=== PATIENT | male | born 1965 | race Caucasian/White ===

== ENCOUNTER 2017-04-17 12:21 | Inpatient (IN) | payer OTHER ==
[~2017-04-17] VITALS: Ht 172.7 cm; Wt 92.7 kg
[2017-04-17] VITALS (7 sets, daily range): BP systolic 95–116; BP diastolic 54–72; PULSE 90–106; RESP 18–20; TEMP 99.1–101; O2SAT 90–99
[2017-04-17] MEDS ORDERED: RANI150T PO (12:40)
[2017-04-17] MEDS ORDERED: IBRU1CAP PO (12:40)
[2017-04-17] MEDS ORDERED: AMOX875T PO (12:40)
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
--- NOTE | 2017-04-17 13:16 | RADRPT ---
EXAM DATE/TIME: 04/17/2017 13:07 [facility] COMPARISON: No previous studies available for comparison. INDICATIONS : Cough, chills, nausea. MEDICAL HISTORY : None. SURGICAL HISTORY : None. ENCOUNTER: Initial ACUITY: 2 days PAIN SCORE: 0/10 LOCATION: Bilateral chest FINDINGS: A single view of the chest demonstrates the lungs to be symmetrically aerated without evidence of mas s, infiltrate or effusion. The cardiomediastinal contours are unremarkable. Osseous structures are intact. CONCLUSION: No acute disease. Emery Corea MD on April 17, 2017 at 13:14 Board Certified Radiologist. This report was verified electronically.
[2017-04-17 13:22] LABS: HEMATOCRIT 42.9 % (39.0-51.0); MEAN CELL VOLUME 83.3 FL (80.0-100.0); MEAN CORPUSCULAR HEMOGLOBIN 27.7 PG (27.0-34.0); MEAN CORPUSCULAR HGB CONC 33.2 % (32.0-36.0); PLATELET COUNT 189 TH/MM3 (150-450); RED BLOOD COUNT 5.15 MIL/MM3 (4.50-5.90); RED CELL DISTRIBUTION WIDTH 13.5 % (11.6-17.2); WHITE BLOOD COUNT 36.4 TH/MM3 (4.0-11.0)
[2017-04-17 13:23] LABS: HEMO FLAGS AUTO DIFF
[2017-04-17 13:33] LABS: CHLORIDE 99 MEQ/L (98-107); POTASSIUM 3.6 MEQ/L (3.5-5.1); SODIUM (NA) 135 MEQ/L (136-145)
[2017-04-17 13:36] LABS: ANION GAP 13 MEQ/L (5-15); BICARBONATE 23.1 MEQ/L (21.0-32.0); BLOOD UREA NITROGEN 11 MG/DL (7-18)
[2017-04-17 13:37] LABS: INTERNATIONAL NORMALIZED RATIO 1.3 RATIO
[2017-04-17 13:39] LABS: GLOMERULAR FILTRATION RATE 63 ML/MIN (>89)
[2017-04-17] MEDS ORDERED: SODIUM CHLOR 0.9% 1000 ML INJ 1,000 ML IV ONE ×2 (14:00→15:00)
[2017-04-17 14:03] LABS: BANDS 1 % (0-6); POLYS (SEG NEUTROPHILS) 76 % (16-70); SCAN/DIFF FINAL DIFF MANUAL; WBC DIFF SAMPLE 100
[2017-04-17] MEDS ORDERED: PIPERACIL-TAZO 3.375 GM PREMIX 50 ML IV ONE (15:00)
[2017-04-17] MEDS ORDERED: VANCOMYCIN INJ 1,250 MG in SODIUM CHLOR 0.9% 250 ML INJ 250 ML IV ONE (15:00)
[2017-04-17 15:16] LABS: LACTIC ACID GHOST NOT REPORTABLE
[2017-04-17] MEDS ORDERED: SODIUM CHLORIDE 0.9% FLUSH 10 ML FLUSH IV FLUSH PRN (15:30)
[2017-04-17] MEDS ORDERED: NALOXONE HCL 0.4 MG/ML AMP IV PRN (15:30)
[2017-04-17] MEDS ORDERED: ONDANSETRON HCL 4 MG/2 ML VIAL IVP PRN (15:30)
[2017-04-17] MEDS ORDERED: LACTULOSE SYRUP 20 GM/30 ML CUP PO PRN (15:30)
[2017-04-17] MEDS ORDERED: MAGNESIUM HYDROXIDE SUSP 30 ML CUP PO PRN (15:30)
[2017-04-17] MEDS ORDERED: ACETAMINOPHEN/HYDROcodone 325 MG/5 MG TAB PO PRN (15:30)
[2017-04-17 15:57] LABS: BLOOD, URINE TRACE (NEG); GLUCOSE,URINE NEG (NEG); KETONE, URINE NEG (NEG); NITRITE,URINE NEG (NEG); PH, URINE 6.5 (5.0-8.5)
[2017-04-17 16:03] LABS: METHOD OF COLLECTION CLEAN CATCH; URINE COLOR YELLOW (YELLW/STRAW)
[2017-04-17 16:04] LABS: COMMENT (UR) CULT NOT INDICATED; CULTURE IF INDICATED CULT NOT INDICATED; RBC, URINE 0-3 /hpf (0-3); SQUAMOUS EPITHELIAL CELL URINE 0-5 /hpf (0-5)
[2017-04-17] MEDS ORDERED: LOPERAMIDE HCL SOLN 2 MG/10 ML UDC PO PRN (17:30)
[2017-04-17] MEDS ORDERED: Vancomycin Consult Pharmacy 1 EA OTHER SCH (17:30)
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
[2017-04-17] MEDS ORDERED: guaiFENesin SOLUTION 200 MG/10 ML CUP PO PRN (17:45)
[2017-04-17] MEDS: ACETAMINOPHEN/HYDROcodone 325 MG/7.5 MG TAB PO PRN ×2 (18:11→22:05)
[2017-04-17] MEDS: ACETAMINOPHEN 325 MG TAB PO PRN (18:11)
[2017-04-17] MEDS: LACTOBACILLUS ACIDOPHILUS TAB PO SCH (18:12)
[2017-04-17] MEDS: SODIUM CHLOR 0.9% 1000 ML INJ 1,000 ML IV SCH (18:12)
[2017-04-17] MEDS: SODIUM CHLORIDE 0.9% FLUSH 10 ML FLUSH IV FLUSH SCH (21:00)
[2017-04-17] MEDS ORDERED: DOCUSATE SODIUM 50 MG/SENNA 8.6 MG TAB PO SCH (21:00)
[2017-04-18] VITALS (8 sets, daily range): BP systolic 101–121; BP diastolic 64–78; PULSE 68–108; RESP 16–20; TEMP 98.6–101.6; O2SAT 92–95
[2017-04-18] MEDS: PIPERACIL-TAZO 3.375 GM PREMIX 50 ML IV SCH ×3 (00:53→16:33)
[2017-04-18] MEDS: SODIUM CHLOR 0.9% 1000 ML INJ 1,000 ML IV SCH ×2 (00:58→13:19)
[2017-04-18] MEDS: ACETAMINOPHEN/HYDROcodone 325 MG/7.5 MG TAB PO PRN ×4 (04:33→21:49)
[2017-04-18] MEDS: ACETAMINOPHEN 325 MG TAB PO PRN ×2 (04:34→21:48)
[2017-04-18] MEDS: VANCOMYCIN INJ 1,000 MG in SODIUM CHLOR 0.9% 250 ML INJ 250 ML IV SCH ×2 (05:50→16:33)
[2017-04-18 06:44] LABS: AUTOMATED NEUTROPHIL # 21.4 TH/MM3 (1.8-7.7); BASOPHIL # 0.2 TH/MM3 (0-0.2); BASOPHIL % 0.9 % (0.0-2.0); EOSINOPHIL % 0.1 % (0.0-4.0); HEMATOCRIT 37.9 % (39.0-51.0); LYMPH % 7.4 % (9.0-44.0); LYMPHOCYTE # 1.8 TH/MM3 (1.0-4.8); MEAN CELL VOLUME 84.1 FL (80.0-100.0); MEAN CORPUSCULAR HEMOGLOBIN 27.7 PG (27.0-34.0); MONO % 3.9 % (0.0-8.0); NEUT % 87.7 % (16.0-70.0); PLATELET COUNT 142 TH/MM3 (150-450); RED BLOOD COUNT 4.51 MIL/MM3 (4.50-5.90); RED CELL DISTRIBUTION WIDTH 13.6 % (11.6-17.2); WHITE BLOOD COUNT 24.4 TH/MM3 (4.0-11.0)
[2017-04-18 07:00] LABS: CHLORIDE 101 MEQ/L (98-107); SODIUM (NA) 135 MEQ/L (136-145)
[2017-04-18 07:01] LABS: HEMO FLAGS AUTO DIFF
[2017-04-18 07:26] LABS: SCAN/DIFF AUTO DIFF CONFIRMED
[2017-04-18 07:45] LABS: ALKALINE PHOSPHATASE 78 U/L (45-117); ALT (GPT) 30 U/L (12-78); ANION GAP 10 MEQ/L (5-15); AST (GOT) 14 U/L (15-37); BICARBONATE 24.2 MEQ/L (21.0-32.0); BLOOD UREA NITROGEN 9 MG/DL (7-18); GLOMERULAR FILTRATION RATE 78 ML/MIN (>89); TOTAL BILIRUBIN ADULT 3.5 MG/DL (0.2-1.0)
[2017-04-18] MEDS: IBUPROFEN 400 MG TAB PO PRN ×2 (08:11→16:32)
[2017-04-18] MEDS: SODIUM CHLORIDE 0.9% FLUSH 10 ML FLUSH IV FLUSH SCH ×2 (08:11→21:49)
[2017-04-18] MEDS: FAMOTIDINE 20 MG TAB PO SCH (08:11)
[2017-04-18] MEDS: LACTOBACILLUS ACIDOPHILUS TAB PO SCH ×3 (08:11→16:32)
[2017-04-18] MEDS ORDERED: POTASSIUM CHLORIDE 10 MEQ CONTROLLED RELEASE TAB PO ONE (08:45)
[2017-04-18] MEDS ORDERED: ALPRAZolam 1 MG TAB PO ONE (10:15)
[2017-04-18] MEDS ORDERED: TEMAZEPAM 15 MG CAP PO PRN (10:15)
[2017-04-18 10:20] LABS: C. DIFF EPI 027 PRESUMPTIVE NEGATIVE (NEGATIVE)
[2017-04-18] MEDS: IBRUTINIB 140 MG PO SCH (10:26)
--- NOTE | 2017-04-18 10:40 | HHI.PR ---
Subjective Remarks Complain of insomnia overnight. Patient is feeling better. He continues to have fevers. White blood cell count has decreased from 36.4-24.4. Lactic acid level has also improved. Low potassium present this morning. CLL continues to place him at increased risk. Further treatments will be needed. Patient remains in sepsis this morning and will likely take longer to resolve for sepsis due to his immunocompromise. He no longer has severe sepsis at this point. Objective Vital Signs Date Time Temp Pulse Resp B/P (MAP) Pulse Ox O2 Delivery O2 Flow Rate FiO2 04/18/17 08:00 101.6 108 20 118/73 (88) 93 04/18/17 04:00 100.4 102 20 118/78 (91) 92 04/18/17 00:00 99.7 94 16 101/64 (76) 92 04/17/17 20:00 99.6 95 18 114/72 (86) 94 04/17/17 20:00 91 04/17/17 17:45 101.0 94 18 116/69 (85) 94 04/17/17 17:39 04/17/17 16:53 96 18 99/65 (76) 99 04/17/17 16:00 94 20 104/64 (77) 93 04/17/17 14:35 92 20 95/54 (68) 94 04/17/17 13:16 90 20 104/60 (75) 90 04/17/17 12:24 99.1 106 20 107/63 (78) 94 I/O 04/17/17 04/17/17 04/17/17 04/18/17 04/18/17 04/18/17 07:00 15:00 23:00 07:00 15:00 23:00 Intake Total 1550 ml Output Total 400 ml 400 ml Balance 1150 ml -400 ml Intake IV Total 1550 ml Output Urine Total 400 ml 400 ml # Bowel Movements 1 Result Diagram: 04/18/1762404/18/17624 Objective Remarks GENERAL: NAD, A&Ox3 HEAD: Normocephalic. NECK: Supple, trachea midline. No lymphadenopathy. EYES: No scleral icterus. No injection or drainage. CARDIOVASCULAR: Tachycardia, without murmurs, gallops, or rubs. RESPIRATORY: Breath sounds equal bilaterally. No accessory muscle use. GASTROINTESTINAL: Abdomen soft, non-tender, nondistended. MUSCULOSKELETAL: No cyanosis, or edema. SKIN: Warm and dry. NEURO: No focal neurological deficitis. A/P Problem List: (1) Severe sepsis ICD Code: A41.9 - Sepsis, unspecified organism; R65.20 - Severe sepsis without septic shock (2) CLL (chronic lymphocytic leukemia) ICD Code: C91.10 - Chronic lymphocytic leukemia of B-cell type not having achieved remission (3) Gastroesophageal reflux disease ICD Code: K21.9 - Gastro-esophageal reflux disease without esophagitis (4) Sepsis ICD Code: A41.9 - Sepsis, unspecified organism Status: Acute Assessment and Plan Assessment and plan 52-year-old male admitted secondary to severe sepsis. Fevers still remained. Patient is still septic this morning. Further treatments with antibiotics and close monitoring needed. Restoril started for insomnia. Severe sepsis Resolved, now sepsis remains Sepsis Suspect primary viral etiology Suspected secondary bacterial infection Continue Zosyn and vancomycin Follow CBC Continue IV hydration Monitor blood pressures Monitor for improvement in white blood cell count Diarrhea Gastroenteritis Hyperemesis Screen for C. difficile pending As needed Imodium as long C. difficile is negative IV hydration Zofran Myalgias Arthralgias Slight improvement PRN pain treatments Productive cough Zosyn and vancomycin As needed Robitussin Oxygen supplementation as needed CLL Immunocompromise state Baseline white blood cell count is approximately 12.0 If conversion to ALL becomes suspicious oncology will be consulted Gastroesophageal reflux disease Continue Protonix DVT prophylaxis SCDs Problem Qualifiers (1) Sepsis: Qualified Codes: A41.9 - Sepsis, unspecified organism Harry Miranda MD Apr 18, 2017 10:40
[2017-04-18] MEDS ORDERED: metroNIDAZOLE 500 MG TAB PO ONE (11:45)
--- NOTE | 2017-04-18 13:41 | EKG ---
Date Performed: 04/17/2017 Time Performed: 13:14:15 PTAGE: 52 years EKG: SINUS TACHYCARDIA NONSPECIFIC T-WAVE ABNORMALITY ABNORMAL RHYTHM ECG NO PREVIOUS TRACING DOCTOR: Anthony Velazco Interpretating Date/Time 04/18/2017 13:38:27
[2017-04-18] MEDS: metroNIDAZOLE 500 MG TAB PO SCH (21:49)
[2017-04-19] VITALS: BP 109/69; PULSE 98; RESP 20; TEMP 98.7; O2SAT 92
[2017-04-19] MEDS: PIPERACIL-TAZO 3.375 GM PREMIX 50 ML IV SCH ×2 (01:48→09:19)
[2017-04-19] MEDS: SODIUM CHLOR 0.9% 1000 ML INJ 1,000 ML IV SCH (01:52)
[2017-04-19 04:00] VITALS: BP 94/70; PULSE 94; RESP 20; TEMP 97.2; O2SAT 94
[2017-04-19] MEDS: metroNIDAZOLE 500 MG TAB PO SCH (05:24)
[2017-04-19] MEDS: VANCOMYCIN INJ 1,000 MG in SODIUM CHLOR 0.9% 250 ML INJ 250 ML IV SCH (05:25)
[2017-04-19] MEDS ORDERED: PHARMACY ORDERED LAB ONE (05:45)
[2017-04-19 06:01] LABS: BASOPHIL % 0.1 % (0.0-2.0); EOSINOPHIL % 0.1 % (0.0-4.0); HEMATOCRIT 38.4 % (39.0-51.0); LYMPH % 4.6 % (9.0-44.0); LYMPHOCYTE # 1.5 TH/MM3 (1.0-4.8); MEAN CELL VOLUME 82.9 FL (80.0-100.0); MEAN CORPUSCULAR HEMOGLOBIN 27.6 PG (27.0-34.0); MEAN CORPUSCULAR HGB CONC 33.3 % (32.0-36.0); MONO % 5.2 % (0.0-8.0); PLATELET COUNT 163 TH/MM3 (150-450); RED BLOOD COUNT 4.63 MIL/MM3 (4.50-5.90); RED CELL DISTRIBUTION WIDTH 13.7 % (11.6-17.2); WHITE BLOOD COUNT 33.2 TH/MM3 (4.0-11.0)
[2017-04-19 06:03] LABS: HEMO FLAGS AUTO DIFF
[2017-04-19 06:11] LABS: CHLORIDE 103 MEQ/L (98-107); POTASSIUM 3.3 MEQ/L (3.5-5.1); SODIUM (NA) 136 MEQ/L (136-145)
[2017-04-19 06:16] LABS: ANION GAP 11 MEQ/L (5-15); BICARBONATE 21.8 MEQ/L (21.0-32.0); BLOOD UREA NITROGEN 13 MG/DL (7-18)
[2017-04-19 06:19] LABS: ALT (GPT) 21 U/L (12-78); AST (GOT) 11 U/L (15-37); BANDS 23 % (0-6); GLOMERULAR FILTRATION RATE 58 ML/MIN (>89); NEUTROPHIL # MANUAL DIFF 30.5 TH/MM3 (1.8-7.7); PLATELET ESTIMATE SMEAR NORMAL (NORMAL); PLATELET MORPHOLOGY NORMAL (NORMAL); POLYS (SEG NEUTROPHILS) 69 % (16-70); WBC DIFF SAMPLE 100
[2017-04-19 06:20] LABS: SCAN/DIFF FINAL DIFF MANUAL; TOTAL BILIRUBIN ADULT 3.7 MG/DL (0.2-1.0)
[2017-04-19 06:22] LABS: ALKALINE PHOSPHATASE 88 U/L (45-117)
--- NOTE | 2017-04-19 07:49 | RADRPT ---
EXAM DATE/TIME: 04/19/2017 07:32 [facility] COMPARISON: CHEST SINGLE AP, April 17, 2017, 13:07. INDICATIONS : Short of breath. MEDICAL HISTORY : None. SURGICAL HISTORY : None. ENCOUNTER: Subsequent ACUITY: 3 days PAIN SCORE: 0/10 LOCATION: Bilateral chest FINDINGS: A single AP erect portable view of the chest demonstrates the lungs to be symmetrically aerated witho ut evidence of mass, infiltrate or effusion. The study is Midinspiratory with crowding of the lung va sculature. The cardiomediastinal contours are unremarkable. Osseous structures are intact. CONCLUSION: Midinspiratory exam with no acute cardiopulmonary disease. Leodan Hayes MD on April 19, 2017 at 7:47 Board Certified Radiologist. This report was verified electronically.
[2017-04-19] MEDS: SODIUM CHLORIDE 0.9% FLUSH 10 ML FLUSH IV FLUSH SCH (08:01)
[2017-04-19 08:09] VITALS: BP 118/74; PULSE 95; O2SAT 95
[2017-04-19] MEDS ORDERED: NITROGLYCERIN 0.4 MG SL 25 TABS/BTL SL PRN (08:15)
[2017-04-19] MEDS: LACTOBACILLUS ACIDOPHILUS TAB PO SCH (09:04)
[2017-04-19] MEDS: FAMOTIDINE 20 MG TAB PO SCH (09:04)
[2017-04-19] MEDS: IBRUTINIB 140 MG PO SCH (09:05)
[2017-04-19] MEDS ORDERED: METR-1 PO (09:36)
[2017-04-19] MEDS ORDERED: LACTTAB8 PO (09:36)
[2017-04-19] MEDS ORDERED: LEVA750T9 PO (09:36)
--- NOTE | 2017-04-19 10:08 | HHI.PR ---
Subjective Remarks Reports of chest pain this morning. ACS protocol and active. Aspirin provided. Chest pain has resolved by the time I see the patient. The patient feels that his chest pain is related to his cough combined with aggravation from episodes occurring overnight. He says he's perturbed because his IV pump continuously beeped and nobody helped stop beeping. He requested an IV change and this was not accommodated. He also had diarrhea and soiled the bed and reports that took an hour to remedy. Chest pain is improved now. However, patient is intending to leave AMA. I advised that he stay as he still has active fever and meets sepsis criteria and presence of immunocompromise secondary to his CLL. He will continue to be encouraged to stay. Objective Vital Signs Date Time Temp Pulse Resp B/P (MAP) Pulse Ox O2 Delivery O2 Flow Rate FiO2 04/19/17 08:09 95 118/74 (89) 95 04/19/17 04:00 97.2 94 20 94/70 (78) 94 04/19/17 00:00 98.7 98 20 109/69 (82) 92 04/18/17 21:49 107 04/18/17 20:00 101.3 106 20 107/69 (82) 92 04/18/17 17:39 18 04/18/17 17:39 18 04/18/17 16:00 100.7 106 18 121/73 (89) 94 04/18/17 12:00 98.6 68 20 107/67 (80) 95 I/O 04/18/17 04/18/17 04/18/17 04/19/17 04/19/17 04/19/17 07:00 15:00 23:00 07:00 15:00 23:00 Intake Total 1550 ml 1775 ml 550 ml 2110 ml Output Total 400 ml 400 ml 750 ml Balance 1150 ml 1375 ml 550 ml 1360 ml Intake Oral 725 ml 250 ml 480 ml IV Total 1550 ml 1050 ml 300 ml 1630 ml Output Urine Total 400 ml 400 ml 750 ml Bladder Scan Volume Amount 113 ml # Voids 4 3 # Bowel Movements 1 2 0 Result Diagram: 04/19/1744604/19/17446 Objective Remarks GENERAL: NAD, A&Ox3 HEAD: Normocephalic. NECK: Supple, trachea midline. No lymphadenopathy. EYES: No scleral icterus. No injection or drainage. CARDIOVASCULAR: Tachycardia, without murmurs, gallops, or rubs. RESPIRATORY: Breath sounds equal bilaterally. No accessory muscle use. GASTROINTESTINAL: Abdomen soft, non-tender, nondistended. MUSCULOSKELETAL: No cyanosis, or edema. SKIN: Warm and dry. NEURO: No focal neurological deficitis. A/P Problem List: (1) Severe sepsis ICD Code: A41.9 - Sepsis, unspecified organism; R65.20 - Severe sepsis without septic shock (2) CLL (chronic lymphocytic leukemia) ICD Code: C91.10 - Chronic lymphocytic leukemia of B-cell type not having achieved remission (3) Gastroesophageal reflux disease ICD Code: K21.9 - Gastro-esophageal reflux disease without esophagitis (4) Sepsis ICD Code: A41.9 - Sepsis, unspecified organism Status: Acute Assessment and Plan Assessment and plan 52-year-old male admitted secondary to severe sepsis. Fevers still remained. Patient is still meeting sepsis criteria today. White blood cell count increased to 33. Chest pain reported overnight. Follow cardiac enzymes, aspirin, oxygen as needed, monitor for symptoms. As needed nitroglycerin. Bilirubin levels elevated but this is chronic for him. Patient is at risk for AMA discharge today. He is encouraged to stay due to his clinical state. Severe sepsis Resolved, now sepsis remains Sepsis Suspect primary viral etiology Suspected secondary bacterial infection Continue Zosyn and vancomycin Follow CBC Continue IV hydration Monitor blood pressures Monitor for improvement in white blood cell count Diarrhea Gastroenteritis Hyperemesis Screen for C. difficile pending As needed Imodium as long C. difficile is negative IV hydration Zofran Myalgias Arthralgias Slight improvement PRN pain treatments Chronic hyperbilirubinemia Monitor Productive cough Zosyn and vancomycin As needed Robitussin Oxygen supplementation as needed CLL Immunocompromise state Baseline white blood cell count is approximately 12.0 If conversion to ALL becomes suspicious oncology will be consulted Gastroesophageal reflux disease Continue Protonix DVT prophylaxis SCDs Problem Qualifiers (1) Sepsis: Qualified Codes: A41.9 - Sepsis, unspecified organism Harry Miranda MD Apr 19, 2017 10:08
[2017-04-19] MEDS ORDERED: ASPIRIN 325 MG TAB PO ONE (10:15)
[2017-04-19 11:09] LABS: BLOOD, URINE SMALL (NEG); GLUCOSE,URINE 100 mg/dL (NEG); KETONE, URINE NEG (NEG); NITRITE,URINE NEG (NEG); PH, URINE 5.5 (5.0-8.5)
[2017-04-19 11:24] LABS: METHOD OF COLLECTION CLEAN CATCH; URINE COLOR AMBER (YELLW/STRAW)
[2017-04-19 11:34] LABS: SQUAMOUS EPITHELIAL CELL URINE 0-5 /hpf (0-5)
[2017-04-19 11:38] LABS: COMMENT (UR) CULT NOT INDICATED; CULTURE IF INDICATED CULT NOT INDICATED
--- NOTE | 2017-04-19 12:03 | PD.AMA ---
Against Medical Advice Note Diagnosis: (1) C. difficile colitis (2) CLL (chronic lymphocytic leukemia) (3) Severe sepsis Discharge Disposition: Against Medical Advice Pt Condition on Discharge: Guarded Recommended Treatment Course Patient is recommended to stay until sepsis resolved. She elected to leave. Antibiotics were provided continue as an outpatient due to the risks of his CLL with immunocompromise and active C. difficile and possible other bacterial infection. He is provided with Levaquin and Flagyl and probiotics. He is encouraged to return to the hospital should fevers persist or for any worsening. AMA Statement Patient Corwin Proctor has decided to leave the hospital against medical advice. This patient has the capacity to refuse care and understands the risks of leaving, including permanent disability and/or , and has had an opportunity to ask questions about his condition. The patient has been informed that he may return for care at any time, and follow up has been arranged/ advised. Harry Miranda MD Apr 19, 2017 12:03
--- NOTE | 2017-04-19 12:43 | EKG ---
Date Performed: 04/19/2017 Time Performed: 07:46:26 PTAGE: 52 years EKG: SINUS TACHYCARDIA NONSPECIFIC T-WAVE ABNORMALITY ABNORMAL RHYTHM ECG PREVIOUS TRACING : 04/17/2017 13.14 DOCTOR: King Elizabeth Interpretating Date/Time 04/19/2017 12:41:52
[2017-04-20] MEDS ORDERED: ASPIRIN 325 MG TAB PO SCH (09:00)
== END 2017-04-19 11:24 | disposition left against medical advice (07) | DRG 872 ==
LOC: PHED 12:21 → PHEDA 15:13 → PH3A 17:32
PROVIDERS: ADMIT Hospitalist; ATTEND Hospitalist
DX: A41.9 Sepsis, unspecified organism (principal); C91.10 Chronic lymphocytic leukemia of B-cell type not having achieved remission; A04.7 Enterocolitis due to Clostridium difficile; R17 Unspecified jaundice; R65.20 Severe sepsis without septic shock; G47.00 Insomnia, unspecified; J40 Bronchitis, not specified as acute or chronic; K21.9 Gastro-esophageal reflux disease without esophagitis; R00.0 Tachycardia, unspecified
CPT/HCPCS: 71010; 80048; 80053; 80202; 81001; 82550; 83605; 84484; 85007; 85025; 85027; 85610; 85730; 87040; 87493; 87804; 93005; 96360; J2405; J2543; J3370; J7030; J7050

== ENCOUNTER 2017-04-21 00:54 | Inpatient (IN) | payer OTHER ==
[~2017-04-21] VITALS: Ht 172.7 cm; Wt 98.8 kg
[2017-04-21] VITALS (12 sets, daily range): BP systolic 117–127; BP diastolic 70–84; PULSE 87–98; RESP 14–24; TEMP 97.7–99.5; O2SAT 91–97
[~2017-04-21 00:54] MED LIST: IBRU1CAP PO; LACTTAB8 PO; LEVA750T9 PO; METR-1 PO; RANI150T PO
[2017-04-21] MEDS ORDERED: IOHEXOL 350 MG/ML 10 ML VIAL (for RAD DIAG) IVCONTRAST ONE (00:55)
[2017-04-21] MEDS ORDERED: SODIUM CHLOR 0.9% 1000 ML INJ 1,000 ML IV ONE ×2 (01:30→02:45)
[2017-04-21] MEDS ORDERED: SODIUM CHLORIDE 0.9% FLUSH 10 ML FLUSH IV FLUSH PRN ×2 (01:30→03:15)
[2017-04-21] MEDS ORDERED: PIPERACIL-TAZO 4.5 GM PREMIX 100 ML IV ONE (01:30)
[2017-04-21] MEDS ORDERED: VANCOMYCIN INJ 1,000 MG in SODIUM CHLOR 0.9% 250 ML INJ 250 ML IV ONE (01:30)
[2017-04-21 01:50] LABS: BASOPHIL # 0.1 TH/MM3 (0-0.2); BASOPHIL % 0.3 % (0.0-2.0); EOSINOPHIL # 0.2 TH/MM3 (0-0.4); EOSINOPHIL % 0.7 % (0.0-4.0); HEMATOCRIT 36.5 % (39.0-51.0); LYMPH % 7.9 % (9.0-44.0); LYMPHOCYTE # 2.1 TH/MM3 (1.0-4.8); MEAN CELL VOLUME 82.8 FL (80.0-100.0); MEAN CORPUSCULAR HEMOGLOBIN 27.2 PG (27.0-34.0); MEAN CORPUSCULAR HGB CONC 32.8 % (32.0-36.0); MONO % 4.7 % (0.0-8.0); NEUT % 86.4 % (16.0-70.0); PLATELET COUNT 195 TH/MM3 (150-450); RED BLOOD COUNT 4.41 MIL/MM3 (4.50-5.90); RED CELL DISTRIBUTION WIDTH 13.8 % (11.6-17.2); WHITE BLOOD COUNT 26.7 TH/MM3 (4.0-11.0)
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
[2017-04-21 02:01] LABS: HEMO FLAGS DIFF FINAL
[2017-04-21 02:04] LABS: CHLORIDE 99 MEQ/L (98-107); SODIUM (NA) 132 MEQ/L (136-145)
[2017-04-21 02:08] LABS: ANION GAP 11 MEQ/L (5-15); APTT (PATIENT) 29.1 SEC (24.3-30.1); BICARBONATE 21.7 MEQ/L (21.0-32.0); INTERNATIONAL NORMALIZED RATIO 1.1 RATIO; MAGNESIUM 1.8 MG/DL (1.5-2.5)
[2017-04-21] MEDS ORDERED: HYDROmorphone HCL PF 1 MG/ML VIAL IV PUSH ONE (02:15)
[2017-04-21] MEDS ORDERED: ONDANSETRON HCL 4 MG/2 ML VIAL IV PUSH ONE (02:15)
--- NOTE | 2017-04-21 02:29 | RADRPT ---
EXAM DATE/TIME: 04/21/2017 01:38 [facility] COMPARISON: CHEST SINGLE AP, April 19, 2017, 7:32. INDICATIONS : Fever. MEDICAL HISTORY : None. SURGICAL HISTORY : None. ENCOUNTER: Sequela ACUITY: 1 week PAIN SCORE: 8/10 LOCATION: Bilateral chest FINDINGS: Lung volumes are small and with vascular crowding. There is mild atelectasis/infiltrate at the bases and in the left perihilar region. No large effusion seen. No pneumothorax. Heart size stable, upper limits of normal. CONCLUSION: Bibasilar and left perihilar consolidation. Emery Houston MD on April 21, 2017 at 2:26 Board Certified Radiologist. This report was verified electronically.
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
[2017-04-21 02:40] LABS: ALKALINE PHOSPHATASE 106 U/L (45-117); ALT (GPT) 16 U/L (12-78); AST (GOT) 14 U/L (15-37); BLOOD UREA NITROGEN 37 MG/DL (7-18); CREATINE KINASE 50 U/L (39-308); GLOMERULAR FILTRATION RATE 20 ML/MIN (>89); TOTAL BILIRUBIN ADULT 0.9 MG/DL (0.2-1.0)
[2017-04-21] MEDS ORDERED: metroNIDAZOLE 500 MG TAB PO ONE (02:45)
[2017-04-21] MEDS ORDERED: POTASSIUM CHLORIDE 20 MEQ CONTROLLED RELEASE TAB PO ONE (02:45)
[2017-04-21] MEDS ORDERED: SODIUM CHLORIDE 0.9% FLUSH 10 ML FLUSH IVF PRN (03:00)
[2017-04-21 03:11] LABS: BLOOD, URINE SMALL (NEG); GLUCOSE,URINE NEG (NEG); KETONE, URINE TRACE mg/dL (NEG); NITRITE,URINE NEG (NEG); PH, URINE 5.5 (5.0-8.5)
[2017-04-21] MEDS ORDERED: SODIUM CHLOR 0.9% 1000 ML INJ 1,000 ML IV SCH (03:12)
[2017-04-21] MEDS ORDERED: BISACODYL 10 MG SUPP RECTAL PRN (03:15)
[2017-04-21] MEDS ORDERED: ACETAMINOPHEN/HYDROcodone 325 MG/5 MG TAB PO PRN (03:15)
[2017-04-21] MEDS ORDERED: SENNOSIDES 8.6 MG TAB PO PRN (03:15)
[2017-04-21] MEDS ORDERED: LACTULOSE SYRUP 20 GM/30 ML CUP PO PRN (03:15)
[2017-04-21] MEDS ORDERED: ACETAMINOPHEN 325 MG TAB PO PRN (03:15)
[2017-04-21] MEDS ORDERED: Vancomycin Consult Pharmacy 1 EA OTHER SCH (03:15)
[2017-04-21] MEDS ORDERED: MAGNESIUM HYDROXIDE SUSP 30 ML CUP PO PRN (03:15)
[2017-04-21 03:17] LABS: URINE COLOR YELLOW (YELLW/STRAW)
[2017-04-21 03:19] LABS: COMMENT (UR) CULT NOT INDICATED; CULTURE IF INDICATED CULT NOT INDICATED; WBC, URINE 0-2 /hpf (0-5)
[2017-04-21] MEDS ORDERED: VANCOMYCIN 1,000 MG/NS 250 ML IV ONE ×2 (04:00)
[2017-04-21] MEDS: MORPHINE SULFATE 4 MG/ML INJ IV PRN ×6 (05:21→22:03)
[2017-04-21] MEDS ORDERED: SODIUM CHLORIDE 0.9% FLUSH 10 ML FLUSH IV FLUSH SCH (09:00)
[2017-04-21] MEDS: SODIUM CHLORIDE 0.9% FLUSH 10 ML FLUSH IV FLUSH SCH ×2 (09:00→21:00)
[2017-04-21] MEDS: DOCUSATE SODIUM 50 MG/SENNA 8.6 MG TAB PO SCH ×2 (09:05→21:00)
[2017-04-21] MEDS: ONDANSETRON HCL 4 MG/2 ML VIAL IVP PRN ×3 (09:06→22:02)
[2017-04-21 11:10] LABS: HEMATOCRIT 34.3 % (39.0-51.0); MEAN CELL VOLUME 82.9 FL (80.0-100.0); MEAN CORPUSCULAR HEMOGLOBIN 27.7 PG (27.0-34.0); MEAN CORPUSCULAR HGB CONC 33.4 % (32.0-36.0); PLATELET COUNT 185 TH/MM3 (150-450); RED BLOOD COUNT 4.13 MIL/MM3 (4.50-5.90); RED CELL DISTRIBUTION WIDTH 14.3 % (11.6-17.2); REVIEW FLAG FINAL; WHITE BLOOD COUNT 23.9 TH/MM3 (4.0-11.0)
[2017-04-21 11:19] LABS: POTASSIUM 3.3 MEQ/L (3.5-5.1)
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
[2017-04-21] MEDS: metroNIDAZOLE 500 MG TAB PO SCH ×2 (12:19→18:40)
--- NOTE | 2017-04-21 13:38 | EKG ---
Date Performed: 04/21/2017 Time Performed: 01:47:18 PTAGE: 52 years EKG: Sinus rhythm NONSPECIFIC T-WAVE ABNORMALITY Compared to prior tracing no significant change BORDERLINE ECG PREVIOUS TRACING : 04/19/2017 07.46 DOCTOR: Saurabh Fraser Interpretating Date/Time 04/21/2017 13:38:00
[2017-04-21] MEDS: NS + KCL 40 MEQ INJ 1,000 ML IV SCH (13:58)
[2017-04-21] MEDS: CEFEPIME INJ 1,000 MG in SODIUM CHLORIDE 0.9% INJ 100 ML IV SCH (13:59)
[2017-04-21] MEDS ORDERED: IBRUTINIB 140 MG PO ONE (16:45)
[2017-04-21] MEDS ORDERED: PATIENT OWN MEDICATION PO ONE (16:45)
[2017-04-22] VITALS (8 sets, daily range): BP systolic 121–140; BP diastolic 73–88; PULSE 76–86; RESP 12–20; TEMP 96.3–99.2; O2SAT 92–97
[2017-04-22] MEDS: metroNIDAZOLE 500 MG TAB PO SCH ×3 (03:00→18:23)
[2017-04-22] MEDS ORDERED: ALUMINUM/MAGNESIUM/SIMETH 30 ML CUP PO ONE (03:00)
[2017-04-22] MEDS: SODIUM CHLORIDE 0.9% FLUSH 10 ML FLUSH IV FLUSH SCH ×2 (08:46→20:55)
[2017-04-22] MEDS: FAMOTIDINE 20 MG TAB PO SCH (08:51)
[2017-04-22] MEDS: DOCUSATE SODIUM 50 MG/SENNA 8.6 MG TAB PO SCH ×2 (08:51→20:54)
[2017-04-22] MEDS ORDERED: IBRUTINIB 140 MG PO SCH (09:00)
[2017-04-22] MEDS: MORPHINE SULFATE 4 MG/ML INJ IV PRN ×4 (10:50→21:39)
[2017-04-22 11:02] LABS: CHLORIDE 105 MEQ/L (98-107); POTASSIUM 3.2 MEQ/L (3.5-5.1); SODIUM (NA) 136 MEQ/L (136-145)
[2017-04-22 11:05] LABS: ANION GAP 11 MEQ/L (5-15); AUTOMATED NEUTROPHIL # 13.1 TH/MM3 (1.8-7.7); BASOPHIL % 0.2 % (0.0-2.0); BICARBONATE 19.7 MEQ/L (21.0-32.0); BLOOD UREA NITROGEN 36 MG/DL (7-18); EOSINOPHIL # 0.2 TH/MM3 (0-0.4); HEMATOCRIT 33.5 % (39.0-51.0); LYMPH % 9.3 % (9.0-44.0); LYMPHOCYTE # 1.5 TH/MM3 (1.0-4.8); MEAN CELL VOLUME 82.7 FL (80.0-100.0); MEAN CORPUSCULAR HEMOGLOBIN 26.4 PG (27.0-34.0); MEAN CORPUSCULAR HGB CONC 31.9 % (32.0-36.0); MONO % 6.2 % (0.0-8.0); NEUT % 83.3 % (16.0-70.0); PLATELET COUNT 190 TH/MM3 (150-450); RED BLOOD COUNT 4.05 MIL/MM3 (4.50-5.90); RED CELL DISTRIBUTION WIDTH 14.1 % (11.6-17.2); WHITE BLOOD COUNT 15.8 TH/MM3 (4.0-11.0)
[2017-04-22 11:08] LABS: ALT (GPT) 15 U/L (12-78); AST (GOT) 19 U/L (15-37); GLOMERULAR FILTRATION RATE 28 ML/MIN (>89)
[2017-04-22 11:10] LABS: TOTAL BILIRUBIN ADULT 0.6 MG/DL (0.2-1.0)
[2017-04-22 11:11] LABS: ALKALINE PHOSPHATASE 97 U/L (45-117)
[2017-04-22 11:19] LABS: HEMO FLAGS DIFF FINAL
--- NOTE | 2017-04-22 12:02 | HHI.PR ---
Subjective Remarks Patient still complains of diarrhea and abdominal distention. Some improvement in white blood cell count and a decrease in percent neutrophils. He is on an immunosuppressant for his CLL. Increased rate feeling is possible if we hold immunosuppressant. This was discussed with patient. No new complaints. No fevers. He feels weak. Objective Vital Signs Date Time Temp Pulse Resp B/P (MAP) Pulse Ox O2 Delivery O2 Flow Rate FiO2 04/22/17 09:08 96.3 82 20 133/77 (95) 95 04/22/17 05:37 98.5 77 16 125/77 (93) 96 04/22/17 03:46 98.8 77 16 125/77 (93) 96 04/22/17 01:40 99.2 86 12 121/78 (92) 97 04/21/17 20:26 99.5 92 14 126/84 (98) 92 04/21/17 20:00 92 04/21/17 20:00 96 21 04/21/17 18:46 18 04/21/17 18:00 99.0 91 18 125/78 (94) 97 04/21/17 12:00 97.7 88 16 117/81 (93) 96 I/O 04/21/17 04/21/17 04/21/17 04/22/17 04/22/17 04/22/17 06:59 14:59 22:59 06:59 14:59 22:59 Intake Total 2832 ml 950 ml 850 ml Output Total 550 ml 1000 ml 1000 ml Balance 2282 ml 950 ml -150 ml -1000 ml Intake Oral 120 ml 200 ml 200 ml IV Total 2712 ml 750 ml 650 ml Output Urine Total 550 ml 1000 ml 1000 ml # Bowel Movements 0 1 Result Diagram: 04/22/1757 04/22/17956 Objective Remarks GENERAL: NAD, A&Ox3 HEAD: Normocephalic. NECK: Supple, trachea midline. No lymphadenopathy. EYES: No scleral icterus. No injection or drainage. CARDIOVASCULAR: Regular rate and rhythm without murmurs, gallops, or rubs. RESPIRATORY: Breath sounds equal bilaterally. No accessory muscle use. GASTROINTESTINAL: Abdomen soft, non-tender. Abdomen is distended. MUSCULOSKELETAL: No cyanosis, or edema. SKIN: Warm and dry. NEURO: No focal neurological deficitis. A/P Problem List: (1) Severe sepsis ICD Code: A41.9 - Sepsis, unspecified organism; R65.20 - Severe sepsis without septic shock (2) CLL (chronic lymphocytic leukemia) ICD Code: C91.10 - Chronic lymphocytic leukemia of B-cell type not having achieved remission (3) Hyperbilirubinemia ICD Code: E80.6 - Other disorders of bilirubin metabolism (4) Gastroesophageal reflux disease ICD Code: K21.9 - Gastro-esophageal reflux disease without esophagitis (5) C. difficile colitis ICD Code: A04.7 - Enterocolitis due to Clostridium difficile (6) Sepsis ICD Code: A41.9 - Sepsis, unspecified organism Status: Acute (7) Hypokalemia ICD Code: E87.6 - Hypokalemia Status: Acute Assessment and Plan Assessment and plan 52-year-old male who returns after leaving [place] after being admitted secondary to severe sepsis. Sepsis had remained at time of discharge and sepsis criteria are still present at time of readmission. Urinary obstruction Sun catheter in place Follow urine output Void trial when stabilized Acute renal failure Improving May be a correlation between dehydration and urinary obstruction Sepsis may be part of the etiology Treat urinary obstruction as above IV hydration Follow renal function Sepsis Etiology is related to C. difficile and possibly secondary nonspecified infection Continue cefepime Continue Zosyn Continue Flagyl Follow CBC Continue IV hydration Monitor blood pressures Monitor for improvement in white blood cell count Follow lactic acid level Increased risk for complications given patient's immunocompromise state at Baseline Diarrhea Colitis C. difficile colitis Gastroenteritis Hyperemesis Positive C. difficile IV hydration Zofran Myalgias Arthralgias PRN pain treatments Productive cough Cefepime and Zosyn Oxygen supplementation as needed CLL Immunocompromise state Baseline white blood cell count is approximately 12.0 If conversion to ALL becomes suspicious oncology will be consulted Chemotherapy agent is placed on hold Hypokalemia Monitor and replace as needed Gastroesophageal reflux disease Continue Protonix DVT prophylaxis PEYTONs Harry Miranda MD Apr 22, 2017 12:02
[2017-04-22] MEDS ORDERED: POTASSIUM CHLORIDE 20 MEQ PWD PACKET PO ONE (12:15)
[2017-04-22] MEDS: NS + KCL 40 MEQ INJ 1,000 ML IV SCH ×3 (12:37→21:56)
[2017-04-22] MEDS: CEFEPIME INJ 1,000 MG in SODIUM CHLORIDE 0.9% INJ 100 ML IV SCH (14:34)
[2017-04-22] MEDS ORDERED: VANCOMYCIN INJ 1,250 MG in SODIUM CHLOR 0.9% 250 ML INJ 250 ML IV ONE (15:00)
[2017-04-22] MEDS: ALUMINUM/MAGNESIUM/SIMETH 30 ML CUP PO PRN (20:48)
[2017-04-23] VITALS (7 sets, daily range): BP systolic 113–137; BP diastolic 78–85; PULSE 67–80; RESP 16–20; TEMP 97.4–99.1; O2SAT 93–97
[2017-04-23] MEDS: MORPHINE SULFATE 4 MG/ML INJ IV PRN ×5 (00:40→21:13)
[2017-04-23] MEDS: metroNIDAZOLE 500 MG TAB PO SCH ×3 (04:22→17:17)
[2017-04-23] MEDS: FAMOTIDINE 20 MG TAB PO SCH (07:41)
[2017-04-23] MEDS: SODIUM CHLORIDE 0.9% FLUSH 10 ML FLUSH IV FLUSH SCH ×2 (07:41→21:00)
[2017-04-23] MEDS: DOCUSATE SODIUM 50 MG/SENNA 8.6 MG TAB PO SCH ×2 (07:43→21:00)
[2017-04-23] MEDS: NS + KCL 40 MEQ INJ 1,000 ML IV SCH ×2 (07:43→17:21)
[2017-04-23 08:27] LABS: AUTOMATED NEUTROPHIL # 8.4 TH/MM3 (1.8-7.7); BASOPHIL % 0.4 % (0.0-2.0); EOSINOPHIL # 0.3 TH/MM3 (0-0.4); EOSINOPHIL % 3.1 % (0.0-4.0); HEMATOCRIT 33.1 % (39.0-51.0); HEMO FLAGS DIFF FINAL; LYMPH % 14.5 % (9.0-44.0); LYMPHOCYTE # 1.6 TH/MM3 (1.0-4.8); MEAN CELL VOLUME 82.8 FL (80.0-100.0); MEAN CORPUSCULAR HEMOGLOBIN 27.1 PG (27.0-34.0); MEAN CORPUSCULAR HGB CONC 32.7 % (32.0-36.0); PLATELET COUNT 213 TH/MM3 (150-450); RED CELL DISTRIBUTION WIDTH 14.2 % (11.6-17.2); WHITE BLOOD COUNT 11.3 TH/MM3 (4.0-11.0)
[2017-04-23 08:47] LABS: CHLORIDE 108 MEQ/L (98-107); POTASSIUM 3.7 MEQ/L (3.5-5.1); SODIUM (NA) 139 MEQ/L (136-145)
[2017-04-23 08:54] LABS: ANION GAP 11 MEQ/L (5-15); BICARBONATE 20.3 MEQ/L (21.0-32.0); BLOOD UREA NITROGEN 31 MG/DL (7-18)
[2017-04-23 08:57] LABS: ALT (GPT) 18 U/L (12-78); AST (GOT) 22 U/L (15-37); GLOMERULAR FILTRATION RATE 40 ML/MIN (>89)
[2017-04-23 08:58] LABS: TOTAL BILIRUBIN ADULT 0.6 MG/DL (0.2-1.0)
[2017-04-23 08:59] LABS: ALKALINE PHOSPHATASE 92 U/L (45-117)
[2017-04-23] MEDS: CEFEPIME INJ 1,000 MG in SODIUM CHLORIDE 0.9% INJ 100 ML IV SCH (14:03)
--- NOTE | 2017-04-23 16:11 | HHI.PR ---
Subjective Remarks Patient is still having diffuse abdominal pain, physical his abdomen is swollen. Sun was removed this morning and he has been voiding well. He's had 3 loose stools today. He states they are not as liquid as they were before. Denies fever or chills. States morphine as only thing that helps for pain and helps him sleep and declines to try taking oral pain medicine. Objective Vitals Vital Signs Date Time Temp Pulse Resp B/P (MAP) Pulse Ox O2 Delivery O2 Flow Rate FiO2 04/23/17 15:58 94 21 04/23/17 11:52 98.0 67 20 128/84 (99) 97 04/23/17 09:02 97.7 69 20 129/85 (100) 96 04/23/17 04:00 97.4 73 20 130/84 (99) 93 04/23/17 00:00 99.1 80 20 137/85 (102) 93 04/22/17 20:00 82 04/22/17 20:00 95 21 04/22/17 20:00 98.4 80 20 140/88 (105) 95 04/22/17 17:14 97.6 80 20 122/73 (89) 94 I/O 04/22/17 04/22/17 04/22/17 04/23/17 04/23/17 04/23/17 07:00 15:00 23:00 07:00 15:00 23:00 Intake Total 720 ml Output Total 1000 ml 600 ml 600 ml 800 ml Balance -1000 ml -600 ml 120 ml -800 ml Intake Oral 720 ml Output Urine Total 1000 ml 600 ml 600 ml 800 ml Stool Total 0 ml 0 ml # Voids 0 # Bowel Movements 8 5 4 Result Diagram: 04/23/17 0759 04/23/17 0759 Objective Remarks GENERAL: Well-nourished, well-developed middle-aged male patient. SKIN: Warm and dry. HEAD: Normocephalic. EYES: No scleral icterus. No injection or drainage. NECK: Supple, trachea midline. No JVD or lymphadenopathy. CARDIOVASCULAR: Regular rate and rhythm without murmurs, gallops, or rubs. RESPIRATORY: Breath sounds equal bilaterally. No accessory muscle use. GASTROINTESTINAL: Bowel sounds normal. Abdomen soft, mildly tender to palpation throughout, mildly distended, no rebound or guarding. EXTREMITIES: No cyanosis, or edema. NEUROLOGICAL: Awake, alert, and oriented x 3. Non-focal. A/P Problem List: (1) Hyperbilirubinemia ICD Code: E80.6 - Other disorders of bilirubin metabolism (2) C. difficile colitis ICD Code: A04.7 - Enterocolitis due to Clostridium difficile (3) CLL (chronic lymphocytic leukemia) ICD Code: C91.10 - Chronic lymphocytic leukemia of B-cell type not having achieved remission (4) Gastroesophageal reflux disease ICD Code: K21.9 - Gastro-esophageal reflux disease without esophagitis Assessment and Plan 52-year-old male who returns after leaving [place] after being admitted secondary to severe sepsis. Sepsis had remained at time of discharge and sepsis criteria are still present at time of readmission. C. difficile colitis - clinically improving Etiology is related to C. difficile Blood cultures no growth 2 days Continue Flagyl, DC cefepime Follow CBC Continue IV hydration Increased risk for complications given patient's immunocompromise state at Baseline Urinary obstruction-resolved Abdominal CT scan without hydronephrosis Sun catheter removed this morning, voiding well Acute renal failure Improving May be a correlation between dehydration Myalgias Arthralgias PRN pain treatments Productive cough Cefepime and Zosyn Oxygen supplementation as needed CLL Immunocompromise state Baseline white blood cell count is approximately 12.0 Chemotherapy agent is placed on hold Hypokalemia Monitor and replace as needed Gastroesophageal reflux disease Continue Protonix DVT prophylaxis Mary Donald MD Apr 23, 2017 16:11
[2017-04-23] MEDS ORDERED: VANCOMYCIN INJ 1,250 MG in SODIUM CHLOR 0.9% 250 ML INJ 250 ML IV SCH (18:00)
[2017-04-23] MEDS: ALUMINUM/MAGNESIUM/SIMETH 30 ML CUP PO PRN (21:11)
[2017-04-24] VITALS: BP 139/85; PULSE 74; RESP 20; TEMP 98.3; O2SAT 96
[2017-04-24] MEDS: metroNIDAZOLE 500 MG TAB PO SCH ×2 (02:06→12:07)
[2017-04-24] MEDS: NS + KCL 40 MEQ INJ 1,000 ML IV SCH ×2 (02:06→12:00)
[2017-04-24] MEDS: ALUMINUM/MAGNESIUM/SIMETH 30 ML CUP PO PRN ×2 (02:06→06:38)
[2017-04-24 03:43] VITALS: O2SAT 96
[2017-04-24 04:00] VITALS: BP 141/87; PULSE 67; RESP 20; TEMP 97.7; O2SAT 97
[2017-04-24 08:00] VITALS: BP 139/87; PULSE 64; PULSE 66; RESP 18; TEMP 97.9; O2SAT 95
[2017-04-24 08:24] LABS: POTASSIUM 3.5 MEQ/L (3.5-5.1)
[2017-04-24 08:27] LABS: BICARBONATE 20.6 MEQ/L (21.0-32.0)
[2017-04-24 08:34] LABS: AUTOMATED NEUTROPHIL # 5.9 TH/MM3 (1.8-7.7); BASOPHIL % 0.1 % (0.0-2.0); EOSINOPHIL # 0.3 TH/MM3 (0-0.4); EOSINOPHIL % 3.7 % (0.0-4.0); HEMATOCRIT 33.8 % (39.0-51.0); LYMPH % 12.3 % (9.0-44.0); LYMPHOCYTE # 0.9 TH/MM3 (1.0-4.8); MEAN CELL VOLUME 82.6 FL (80.0-100.0); MEAN CORPUSCULAR HEMOGLOBIN 27.5 PG (27.0-34.0); MEAN CORPUSCULAR HGB CONC 33.2 % (32.0-36.0); MONO % 6.2 % (0.0-8.0); NEUT % 77.7 % (16.0-70.0); PLATELET COUNT 203 TH/MM3 (150-450); RED BLOOD COUNT 4.09 MIL/MM3 (4.50-5.90); RED CELL DISTRIBUTION WIDTH 14.1 % (11.6-17.2); WHITE BLOOD COUNT 7.7 TH/MM3 (4.0-11.0)
[2017-04-24 08:41] LABS: HEMO FLAGS DIFF FINAL
[2017-04-24] MEDS: DOCUSATE SODIUM 50 MG/SENNA 8.6 MG TAB PO SCH (09:00)
[2017-04-24] MEDS: SODIUM CHLORIDE 0.9% FLUSH 10 ML FLUSH IV FLUSH SCH (09:00)
[2017-04-24] MEDS: FAMOTIDINE 20 MG TAB PO SCH (09:09)
[2017-04-24 12:00] VITALS: BP 119/75; PULSE 66; RESP 18; TEMP 98.3; O2SAT 98
[2017-04-24] MEDS ORDERED: METR-1 PO (13:13)
[2017-04-24] MEDS ORDERED: IBRU1CAP PO (13:13)
--- NOTE | 2017-04-24 13:15 | HHI.DS ---
Discharge Summary Admission Date Apr 21, 2017 at 02:52 Discharge Date: Apr 24, 2017 Admitting Diagnosis C. diff sepsis; ac kidney injury (1) Hyperbilirubinemia ICD Code: E80.6 - Other disorders of bilirubin metabolism (2) C. difficile colitis ICD Code: A04.7 - Enterocolitis due to Clostridium difficile (3) CLL (chronic lymphocytic leukemia) ICD Code: C91.10 - Chronic lymphocytic leukemia of B-cell type not having achieved remission (4) Gastroesophageal reflux disease ICD Code: K21.9 - Gastro-esophageal reflux disease without esophagitis (5) CJ (acute kidney injury) ICD Code: N17.9 - Acute kidney failure, unspecified Procedures None Brief History - From Admission Mr. Proctor is a 52-year-old male. He was admitted here for severe sepsis in a state of immunocompromise given his CLL and active treatment for CLL. He wished treated and found to have C. difficile. Stool C. difficile was covered treatment in addition to broad-spectrum IV antibiotics 2. 2 days ago he left AMA. He returns today with reports that he had done better the first day but has gradually beginning worse since. He is not reporting diarrhea but he had urinary obstruction based on labs has evidence of acute renal failure. Signs of infection remaining. He has been started on cefepime and Zosyn and Flagyl. CBC/BMP: 04/24/17 0747 04/24/17 0747 Significant Findings Laboratory Tests Test 04/22/17 09:57 04/23/17 07:59 04/24/17 07:47 White Blood Count 15.8 TH/MM3 (4.0-11.0) 11.3 TH/MM3 (4.0-11.0) Red Blood Count 4.05 MIL/MM3 (4.50-5.90) 4.00 MIL/MM3 (4.50-5.90) 4.09 MIL/MM3 (4.50-5.90) Hemoglobin 10.7 GM/DL (13.0-17.0) 10.8 GM/DL (13.0-17.0) 11.2 GM/DL (13.0-17.0) Hematocrit 33.5 % (39.0-51.0) 33.1 % (39.0-51.0) 33.8 % (39.0-51.0) Mean Corpuscular Hemoglobin 26.4 PG (27.0-34.0) Mean Corpuscular Hemoglobin Concent 31.9 % (32.0-36.0) Neutrophils (%) (Auto) 83.3 % (16.0-70.0) 74.0 % (16.0-70.0) 77.7 % (16.0-70.0) Neutrophils # (Auto) 13.1 TH/MM3 (1.8-7.7) 8.4 TH/MM3 (1.8-7.7) Monocytes # (Auto) 1.0 TH/MM3 (0-0.9) Blood Urea Nitrogen 36 MG/DL (7-18) 31 MG/DL (7-18) 27 MG/DL (7-18) Creatinine 2.40 MG/DL (0.60-1.30) 1.80 MG/DL (0.60-1.30) 1.40 MG/DL (0.60-1.30) Random Glucose 117 MG/DL (74-106) 111 MG/DL (74-106) Total Protein 4.8 GM/DL (6.4-8.2) 4.7 GM/DL (6.4-8.2) Albumin 1.8 GM/DL (3.4-5.0) 1.8 GM/DL (3.4-5.0) Calcium Level 7.7 MG/DL (8.5-10.1) 7.9 MG/DL (8.5-10.1) 7.7 MG/DL (8.5-10.1) Potassium Level 3.2 MEQ/L (3.5-5.1) Carbon Dioxide Level 19.7 MEQ/L (21.0-32.0) 20.3 MEQ/L (21.0-32.0) 20.6 MEQ/L (21.0-32.0) Estimat Glomerular Filtration Rate 28 ML/MIN (>89) 40 ML/MIN (>89) 53 ML/MIN (>89) Vancomycin Level Trough 4.4 MCG/ML (5.0-10.0) Chloride Level 108 MEQ/L (98-107) Lymphocytes # (Auto) 0.9 TH/MM3 (1.0-4.8) Imaging Last Impressions Chest X-Ray 04/21/17127 Signed Impressions: Service Date/Time: Friday, April 21, 2017 01:38 - CONCLUSION: Bibasilar and left perihilar consolidation. Emery Houston MD Abdomen/Pelvis CT 04/21/17127 Signed Impressions: Service Date/Time: Friday, April 21, 2017 02:01 - CONCLUSION: 1. Severe , diffuse colitis, probably C. difficile. No abscess, obstruction or perforation. 2. Atelectasis of both lung bases. 3. Nonspecific hepatomegaly without focal lesion. Emery Houston MD PE at Discharge GENERAL: Well-nourished, well-developed middle-aged male patient. SKIN: Warm and dry. HEAD: Normocephalic. EYES: No scleral icterus. No injection or drainage. NECK: Supple, trachea midline. No JVD or lymphadenopathy. CARDIOVASCULAR: Regular rate and rhythm without murmurs, gallops, or rubs. RESPIRATORY: Breath sounds equal bilaterally. No accessory muscle use. GASTROINTESTINAL: Bowel sounds normal. Abdomen soft, mildly tender to palpation throughout, mildly distended, no rebound or guarding. EXTREMITIES: No cyanosis, or edema. NEUROLOGICAL: Awake, alert, and oriented x 3. Non-focal. Pt update on day of discharge Doing well, no abdominal pain. Decrease loose stools. Hospital Course The patient was admitted to the hospital and treated for C. difficile colitis. Symptoms improved. He is having more formed bowel movements still somewhat loose every 4 hours. Leukocytosis has resolved. No abdominal pain. Kidney function improved. Patient also had a cough with chest x-ray indicating a left perihilar consolidation. He will be discharged home today to complete her course of Flagyl for 14 days, Levaquin by mouth for more days. Imbruvica to be held until he is cleared by his vegetable farmworker. Pt Condition on Discharge: Stable Discharge Disposition: Discharge Home Discharge Time: > 30 minutes Discharge Instructions DIET: Follow Instructions for: As Tolerated, No Restrictions Activities you can perform: Regular-No Restrictions Follow up Referrals: Oncology/Hematology - 1 Week New Medications: Levofloxacin (Levaquin) 750 Mg Tablet 750 MG PO DAILY for Infection, #4 TAB 0 Refills Metronidazole (Flagyl) 500 Mg Tab 500 MG PO Q8H for c dif colitis, #30 TAB Changed Medications: Ibrutinib (Imbruvica) 140 Mg Cap 140 MG PO DAILY for cll for 1 Day, CAP (Medication details modified) Do not start until cleared by vegetable farmworker Continued Medications: Lactobacillus Acidophilus (Lactobacillus Acidophilus) 1 Billion Cell Tab 1 TAB PO TIDAC for Nutritional Supplement, #48 TAB 0 Refills Ranitidine (Ranitidine) 150 Mg Tab 150 MG PO DAILY for Heartburn Management, #30 TAB 0 Refills Discontinued Medications: Levofloxacin (Levaquin) 750 Mg Tablet 750 MG PO DAILY for Infection, #5 TAB 0 Refills Metronidazole (Flagyl) 500 Mg Tab 500 MG PO TID for Infection, #42 TAB 0 Refills Mary Argueta MD Apr 24, 2017 13:15
[2017-04-24] MEDS ORDERED: LEVA750T9 PO (13:23)
[2017-04-24] MEDS ORDERED: VANCOMYCIN INJ 1,600 MG in SODIUM CHLORID 0.9% 500 ML INJ 500 ML IV SCH (14:00)
[2017-04-26] MEDS ORDERED: VANCOMYCIN TROUGH ONE (19:45)
== END 2017-04-24 14:38 | disposition home or self-care (01) | DRG 872 ==
LOC: PHED 00:54 → PHEDA 02:52 → PH3A 03:41
PROVIDERS: ADMIT Family Medicine; ATTEND Family Medicine
DX: A41.4 Sepsis due to anaerobes (principal); N17.9 Acute kidney failure, unspecified; A04.7 Enterocolitis due to Clostridium difficile; C91.10 Chronic lymphocytic leukemia of B-cell type not having achieved remission; E87.6 Hypokalemia; K21.9 Gastro-esophageal reflux disease without esophagitis; E80.6 Other disorders of bilirubin metabolism; N13.9 Obstructive and reflux uropathy, unspecified; M25.50 Pain in unspecified joint
CPT/HCPCS: 51702; 71010; 74177; 80048; 80053; 80202; 81001; 82550; 83605; 83690; 83735; 84484; 85025; 85027; 85610; 85730; 87040; 93005; 96365; 96375; J0692; J1170; J2270; J2405; J2543; J3370; J3480; J7030; J7050; Q9967

== ENCOUNTER 2017-05-08 06:44 | Emergency (ER) | payer OTHER ==
[~2017-05-08] VITALS: Ht 172.7 cm; Wt 84.4 kg
[2017-05-08 06:50] VITALS: BP 128/90; PULSE 101; RESP 18; TEMP 97.2; O2SAT 94
[2017-05-08] MEDS ORDERED: PROPARACAINE HCL 0.5% OPHT SOLN 15 ML BTL RIGHT EYE ONE (07:45)
[2017-05-08 07:55] LABS: AUTOMATED NEUTROPHIL # 3.3 TH/MM3 (1.8-7.7); BASOPHIL % 0.8 % (0.0-2.0); EOSINOPHIL # 0.2 TH/MM3 (0-0.4); EOSINOPHIL % 3.4 % (0.0-4.0); HEMATOCRIT 36.8 % (39.0-51.0); HEMO FLAGS DIFF FINAL; LYMPH % 23.2 % (9.0-44.0); LYMPHOCYTE # 1.2 TH/MM3 (1.0-4.8); MEAN CELL VOLUME 79.9 FL (80.0-100.0); MEAN CORPUSCULAR HEMOGLOBIN 25.1 PG (27.0-34.0); MEAN CORPUSCULAR HGB CONC 31.4 % (32.0-36.0); MONO % 10.3 % (0.0-8.0); NEUT % 62.3 % (16.0-70.0); PLATELET COUNT 208 TH/MM3 (150-450); RED BLOOD COUNT 4.61 MIL/MM3 (4.50-5.90); RED CELL DISTRIBUTION WIDTH 13.4 % (11.6-17.2); WHITE BLOOD COUNT 5.2 TH/MM3 (4.0-11.0)
[2017-05-08] MEDS ORDERED: ONDANSETRON HCL 4 MG/2 ML VIAL IVP ONE (08:00)
[2017-05-08] MEDS ORDERED: HYDROmorphone HCL PF 1 MG/ML VIAL IVS ONE ×2 (08:00→09:45)
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
[2017-05-08 08:08] VITALS: BP 116/69; PULSE 70; RESP 18; O2SAT 96
[2017-05-08 08:16] LABS: POTASSIUM 3.7 MEQ/L (3.5-5.1)
[2017-05-08 08:19] LABS: BICARBONATE 27.5 MEQ/L (21.0-32.0)
[2017-05-08 08:20] LABS: APTT (PATIENT) 25.6 SEC (24.3-30.1); INTERNATIONAL NORMALIZED RATIO 1.1 RATIO
--- NOTE | 2017-05-08 09:09 | RADRPT ---
EXAM DATE/TIME: 05/08/2017 08:13 [facility] COMPARISON: No previous studies available for comparison. INDICATIONS : Right sided headache and eye pain. No known injury. RADIATION DOSE: 60.35 CTDIvol (mGy) MEDICAL HISTORY : Gastroesophageal reflux disease. Chronic lymphocytic leukemia SURGICAL HISTORY : None. ENCOUNTER: Initial ACUITY: 3 days PAIN SCALE: 10/10 LOCATION: Right cranial TECHNIQUE: Multiple contiguous axial images were obtained of the head. Using automated exposure control and adj ustment of the mA and/or kV according to patient size, radiation dose was kept as low as reasonably a chievable to obtain optimal diagnostic quality images. DICOM format image data is available electro nically for review and comparison. FINDINGS: CEREBRUM: The ventricles are normal for age. No evidence of midline shift, mass lesion, hemorrhage or acute in farction. No extra-axial fluid collections are seen. POSTERIOR FOSSA: The cerebellum and brainstem are intact. The 4th ventricle is midline. The cerebellopontine angle i s unremarkable. EXTRACRANIAL: The visualized portion of the orbits is intact. SKULL: The calvaria is intact. No evidence of skull fracture. CONCLUSION: Normal examination. Ash De Santiago MD on May 08, 2017 at 9:07 Board Certified Radiologist. This report was verified electronically.
--- NOTE | 2017-05-08 09:11 | RADRPT ---
EXAM DATE/TIME: 05/08/2017 08:13 [facility] COMPARISON: CT BRAIN W/O CONTRAST, May 08, 2017, 8:13. INDICATIONS : Deep right eye pain and pressure. No known injury. RADIATION DOSE: 34.96 CTDIvol (mGy) MEDICAL HISTORY : Gastroesophageal reflux disease. Chronic lymphocytic leukemia SURGICAL HISTORY : None. ENCOUNTER: Initial ACUITY: 3 days PAIN SCORE: 10/10 LOCATION: Right orbit TECHNIQUE: Volumetric scanning of the facial bones was performed. Using automated exposure control and adjustme nt of the mA and/or kV according to patient size, radiation dose was kept as low as reasonably achiev able to obtain optimal diagnostic quality images. DICOM format image data is available electronicall y for review and comparison. FINDINGS: ORBITS: The orbital and infraorbital osseous structures are intact. The retroconal structures have a normal configuration. No radiopaque foreign bodies are seen. NASAL BONE: Remote fracture deformity of the nasal bone. ZYGOMATIC ARCHES: Symmetric without evidence of fracture. SINUSES: Minimal mucosal thickening right maxillary sinus. NASAL CAVITY: The nasal septum is intact and midline. The lacrimal ducts are intact. SOFT TISSUES: No radiopaque foreign bodies seen. No soft-tissue swelling is seen. INTRACRANIAL: No intracranial air seen. CRIBIFORM PLATE: Grossly intact. CONCLUSION: 1. Minimal mucosal thickening in the right maxillary sinus and remote nasal bone fracture deformity i dentified. 2. Otherwise unremarkable study. Ash De Santiago MD on May 08, 2017 at 9:08 Board Certified Radiologist. This report was verified electronically.
[2017-05-08 09:27] VITALS: BP 120/81; PULSE 75; RESP 16; O2SAT 96
[2017-05-08 10:13] VITALS: RESP 16
== END 2017-05-08 10:16 | disposition home or self-care (01) ==
LOC: PHED 06:44
DX: H57.11 Ocular pain, right eye (principal); Z87.19 Personal history of other diseases of the digestive system
CPT/HCPCS: 70450; 70486; 80048; 85025; 85610; 85730; 96374; 96375; 96376; 99285; J1170; J2405